=== PATIENT | female | born 2000 | race Caucasian/White ===

== ENCOUNTER → 2024-02-10 12:04 | Outpatient (CLI) | payer OTHER, SELFPAY ==
[2024-02-10 13:15] LABS: Add Manual Diff / Slide Review NO; Basophils Absolute Auto 100 /uL (0-100); Basophils Percent Auto 1.3 % (0-2); Eosinophils Absolute Auto 0 /uL (0-450); Hematocrit 45.9 % (36-46); Hemoglobin 15.5 g/dL (12.0-16.0); Lymphocytes Absolute Auto 2000 /uL (1100-4500); Lymphocytes Percent Auto 43.4 % (25-40); Mean Corpuscular HGB Conc 33.7 % (30-36); Mean Corpuscular Hemoglobin 29.5 PG (26-34); Mean Corpuscular Volume 87.4 fL (80-100); Monocytes Absolute Auto 400 /uL (0-900); Monocytes Percent Auto 9.5 % (3-14); Neutrophils Absolute Auto 2100 /uL (1500-7000); Neutrophils Percent Auto 44.8 % (50-75); Platelet Count 248 X10^3/uL (150-400); Red Blood Cell Count 5.25 X10^6/uL (4.0-5.2); Red Cell Distribution Width 13.6 % (11.6-14.8); White Blood Cell Count 4.7 X10^3/uL (4.5-11.0)
[2024-02-10 13:38] LABS: Pregnancy Test Serum,Qual Negative (Negative)
[2024-02-10 14:13] LABS: TSH w/ Reflex to FT4 0.76 uIU/mL (0.47-4.68)
[2024-02-10 14:14] LABS: Ferritin 21 ng/mL (6-137)
== END ==
LOC: LAB 12:07
PROVIDERS: Referring Provider Family Medicine; Visit Provider Family Medicine
DX: O92.4 Hypogalactia (principal)
CPT/HCPCS: 36415; 82728; 84443; 84703; 85025